=== PATIENT | male | born 1995 | race Caucasian/White ===

== ENCOUNTER 2018-11-03 01:01 | Emergency (ER) | payer SELFPAY ==
[2018-11-03] MEDS ORDERED: Ondansetron PF 4 MG/2 ML Vial ONE (01:13)
== END 2018-11-03 04:20 | disposition home or self-care (01) ==
LOC: ERS 01:01
DX: F10.129 Alcohol abuse with intoxication, unspecified (principal)
CPT/HCPCS: 96361; 96374; J2405